=== PATIENT | male | born 1965 | race Caucasian/White ===

== ENCOUNTER 2017-01-03 16:28 | Emergency (ER) | payer OTHER ==
[~2017-01-03] VITALS: Ht 200.7 cm; Wt 165.6 kg
--- NOTE | 2017-01-03 16:42 | NUR ---
PRESENTS SELF TO ED FOR COUGH AND CONGESTION X 2 WEEKS,. PATIENT IS AAO4, APPEARS IN NO APPARENT DISTRESS.RESPIRATION EVENA AND UNLABORED. PATIENT IS AFEBRILE. SATING 95% ON ROOM AIR. ASSISTED PT TO ER BED 02. PENDING MD HENDERSON
[2017-01-03] MEDS ORDERED: ALBUTEROL FS 2.5 MG/3 ML VIAL.NEB NEB ONE (17:00)
[2017-01-03] MEDS ORDERED: IPRATROPIUM NEB FS 0.5 MG/2.5 ML AMPUL.NEB NEB ONE (17:00)
[2017-01-03] MEDS ORDERED: IV NS 0.9% 1,000 ML BAG IV ONE (17:00)
[2017-01-03] MEDS ORDERED: IV NS 0.9% 1,000 ML ONE (17:05)
[2017-01-03] MEDS ORDERED: IV SET PRIMARY PUMP SET 1 EA INFUS.SET MC ONE (17:05)
[2017-01-03 17:12] LABS: BASOPHILS # (AUTO) 0.2 /CMM (0.0-0.2); BASOPHILS % (AUTO) 1.7 % (0.0-2.0); EOSINOPHILS # (AUTO) 0.3 /CMM (0.0-0.7); HEMATOCRIT 46 % (39-51); HEMOGLOBIN 15.4 g/dL (13.5-17.5); LYMPHOCYTES # (AUTO) 4.3 /CMM (0.8-4.8); LYMPHOCYTES % (AUTO) 43.7 % (20.0-44.0); MEAN CORPUSCULAR HEMOGLOBIN 29 PG (26.0-33.0); MEAN CORPUSCULAR HGB CONC 33 g/dl (31.0-36.0); MEAN CORPUSCULAR VOLUME 86 fL (80-96); MONOCYTES # (AUTO) 0.6 /CMM (0.1-1.30); MONOCYTES % (AUTO) 5.8 % (2.0-12.0); NEUTROPHILS # (AUTO) 4.5 /CMM (1.8-8.9); NEUTROPHILS % (AUTO) 45.8 % (43.0-81.0); PLATELET COUNT (AUTO) 261 /CMM (150-450); RDW COEFFICIENT OF VARIATION 12.9 (11.5-15.0); RED BLOOD CELL COUNT(AUTO) 5.39 MIL/uL (4.5-6.0); WHITE BLOOD COUNT (AUTO) 9.9 K/uL (4.3-11.0)
[2017-01-03] MEDS ORDERED: ALBUTEROL FS 2.5 MG/3 ML VIAL.NEB ONE (17:19)
[2017-01-03] MEDS ORDERED: IPRATROPIUM NEB FS 0.5 MG/2.5 ML AMPUL.NEB ONE (17:19)
[2017-01-03 17:23] LABS: CALCIUM, SERUM 9.2 mg/dL (8.5-10.1); CREATININE 1.1 mg/dL (0.6-1.3); POTASSIUM 4.4 mmol/L (3.5-5.1)
[2017-01-03 17:32] LABS: TROPONIN I < 0.017 ng/mL (0.00-0.056)
[2017-01-03 17:36] LABS: ALBUMIN 4.1 g/dL (3.4-5.0); BILIRUBIN,DIRECT 0.1 mg/dL (0.0-0.2); BILIRUBIN,TOTAL 0.4 mg/dL (0.2-1.0); TOTAL PROTEIN, SERUM 8.4 g/dL (6.4-8.2)
[2017-01-03 18:07] LABS: B-TYPE NATRIURETIC PEPTIDE 11 PG/ML (0-125)
[2017-01-03] MEDS ORDERED: LEVOFLOXACIN (750 MG) 750 MG TABLET ONE (18:23)
[2017-01-03] MEDS: LEVOFLOXACIN (750 MG) 750 MG TABLET PO SCH (18:30)
[2017-01-03 18:31] VITALS: BP 120/70
--- NOTE | 2017-01-03 18:32 | NUR ---
Patient discharged to home in stable condition. Written and verbal after care instructions given. Patient verbalizes understanding of instruction.
== END 2017-01-03 18:31 | disposition home or self-care (01) ==
LOC: ER 16:30
DX: J40 Bronchitis, not specified as acute or chronic (principal); F41.9 Anxiety disorder, unspecified; E11.9 Type 2 diabetes mellitus without complications; Z87.891 Personal history of nicotine dependence
CPT/HCPCS: 36415; 71010-TC; 80048-TC; 80076-TC; 82962-TC; 83880; 84484-TC; 85025-TC; A4606; J7030; Z7610

== ENCOUNTER 2018-02-16 19:48 | Emergency (ER) | payer BC, MEDICAID ==
[~2018-02-16] VITALS: Ht 193 cm; Wt 149.7 kg
[2018-02-16 20:00] VITALS: BP 150/89
[2018-02-16] MEDS ORDERED: DOCUSATE SODIUM LIQ 100 MG/10 ML UDC ONE (20:31)
[2018-02-16] MEDS: DOCUSATE SODIUM LIQ 100 MG/10 ML UDC NG ONE (20:46)
== END 2018-02-16 22:20 | disposition home or self-care (01) ==
LOC: ER 19:51
DX: H61.23 Impacted cerumen, bilateral (principal); F17.200 Nicotine dependence, unspecified, uncomplicated; E11.9 Type 2 diabetes mellitus without complications; F41.9 Anxiety disorder, unspecified; Z79.4 Long term (current) use of insulin
CPT/HCPCS: 69209; 99282; A4606; Z7610

== ENCOUNTER 2018-08-13 10:50 | Emergency (ER) | payer BC, OTHER ==
[~2018-08-13] VITALS: Ht 200.7 cm; Wt 164.2 kg
[2018-08-13 11:33] LABS: BASOPHILS % (AUTO) 0.3 % (0.0-2.0); EOSINOPHILS % (AUTO) 0.8 % (0.0-6.0); HEMATOCRIT 42 % (39-51); HEMOGLOBIN 14.2 g/dL (13.5-17.5); LYMPHOCYTES # (AUTO) 2.7 /CMM (0.8-4.8); LYMPHOCYTES % (AUTO) 20.9 % (20.0-44.0); MEAN CORPUSCULAR HGB CONC 34 g/dl (31.0-36.0); MEAN CORPUSCULAR VOLUME 88 fL (80-96); MONOCYTES # (AUTO) 0.8 /CMM (0.1-1.30); MONOCYTES % (AUTO) 6.1 % (2.0-12.0); NEUTROPHILS # (AUTO) 9.2 /CMM (1.8-8.9); NEUTROPHILS % (AUTO) 71.9 % (43.0-81.0); PLATELET COUNT (AUTO) 222 /CMM (150-450); RED BLOOD CELL COUNT(AUTO) 4.81 MIL/uL (4.5-6.0); WHITE BLOOD COUNT (AUTO) 12.8 K/uL (4.3-11.0)
[2018-08-13 11:41] LABS: APPEARANCE,URINE Cloudy (CLEAR); BILIRUBIN,URINE Negative (NEGATIVE); BLOOD, URINE Large Ery/uL (NEGATIVE); COLOR,URINE Yellow (YELLOW); KETONES,URINE Trace (NEGATIVE); LEUKOCYTE ESTERASE ,URINE Trace (NEGATIVE); NITRITE, URINE Positive (NEGATIVE); PH,URINE 5.5 (5.0-8.0); PROTEIN,URINE >=300 mg/dl (NEGATIVE); UGLUCOSE Negative (NEGATIVE); UROBILINOGEN,URINE 0.2 EU/dL (0.2)
[2018-08-13 11:42] LABS: CALCIUM, SERUM 9.9 mg/dL (8.5-10.1); CREATININE 1.1 mg/dL (0.6-1.3); POTASSIUM 4.6 mmol/L (3.5-5.1)
--- NOTE | 2018-08-13 11:45 | NUR ---
patient presented to the ER due to dysuria, hematuria. On room air, breathing evenly and unlabored. kept comfortable. will continue to monitor accordingly.
[2018-08-13 11:48] LABS: BACTERIA,URINE Few /HPF (None Seen); RBC,URINE 80-100 /HPF (0-2); WBC,URINE 20-50 /HPF (0-3)
[2018-08-13 11:49] LABS: ALBUMIN 3.6 g/dL (3.4-5.0); BILIRUBIN,TOTAL 0.3 mg/dL (0.2-1.0); TOTAL PROTEIN, SERUM 8.2 g/dL (6.4-8.2)
[2018-08-13 11:49] LABS: SQUAMOUS EPITHELIAL CELL,UR Few /HPF (None Seen)
[2018-08-13 13:00] VITALS: BP 129/77
--- NOTE | 2018-08-13 13:01 | NUR ---
Patient discharged to home in stable condition. Written and verbal after care instructions given. Patient verbalizes understanding of instruction.IV removed. Catheter intact and site benign. Pressure and 4x4 applied to site. No bleeding noted.
== END 2018-08-13 13:01 | disposition home or self-care (01) ==
LOC: ER 10:50
DX: N41.0 Acute prostatitis (principal); E11.9 Type 2 diabetes mellitus without complications; E78.00 Pure hypercholesterolemia, unspecified; G47.00 Insomnia, unspecified; G89.29 Other chronic pain; M54.9 Dorsalgia, unspecified; F17.200 Nicotine dependence, unspecified, uncomplicated
CPT/HCPCS: 36415; 80053; 81001; 85025; 85652; 86140; 87077; 87086; 87186; 87491; 87591; 99283; A4606; 81000-TC